=== PATIENT | male | born 1980 | race Caucasian/White ===

== ENCOUNTER 2017-04-04 09:34 | Emergency (ER) | payer OTHER ==
[~2017-04-04] VITALS: Ht 177.8 cm; Wt 98.2 kg
[~2017-04-04 09:34] MED LIST: AMLO-110 PO; ATOR10TA82 PO
[2017-04-04 09:37] VITALS: TEMP 36.7; Ht 177.8 cm; Wt 98.2 kg
[2017-04-04] MEDS ORDERED: SODIUM CHLORIDE 0.9% 1000ML 1,000 ML IV STA (09:54)
--- NOTE | 2017-04-04 09:57 | EMERGENCY ROOM VISIT NOTE ---
History Report prepared by Shantell: Chris Faye Under the Supervision of: Dr. Luis Mack M.D. First contact with patient: 09:45 Chief Complaint: DIZZY Stated Complaint: DIZZINESS,LIGHT HEADED,CHEST TIGHTNESS History of Present Illness The patient is a 37 year old male who presents to the Emergency Room with complaints of constant dizziness beginning two days ago. He describes his dizziness as 'fuzziness' and the room spinning. The patient states he was at [employer] and stood up quickly. He reports it felt like the room was spinning and he was going to fall over. The patient notes he experienced similar symptoms yesterday while he was sitting on the couch and thought he was going to fall over. He states he developed a headache, palpitations, and a heat eller earlier today. The patient reports he felt dizzy when he tried using the restroom in the ED. He notes he is keeping up on his fluids. The patient states he had similar symptoms 1.5 months ago, and it was attributed to his elevated liver enzymes from heavy alcohol use. He reports he stopped drinking alcohol. The patient notes he has been experiencing right calf pain since this episode. He states he has a history of smoking, hypertension, and hyperlipidemia. The patient denies chest pain, trauma to the head, recent sickness, numbness, chills , fevers, weakness, vomiting, history of diabetes, black stools, history of hepatitis C, and abnormal exposures at work. Source of History: patient Onset: two days ago Position: other (global) Quality: other (dizziness) Timing: constant Associated Symptoms: + headache, No fevers, No chills, No chest pain, No vomiting, No weakness, No numbness Note: Associated symptoms: room was spinning, feeling of falling over, palpitation, heat eller, right calf pain Denies: trauma to the head, recent sickness Review of Systems See HPI for pertinent positives & negatives. A total of 10 systems reviewed and were otherwise negative. Past Medical & Surgical Medical Problems: (1) Hyperlipidemia (2) Hypertension Old medical records were reviewed. Nurse's notes were reviewed and I agree with. Family History Heart disease Social History Smoking Status: Current Every Day Smoker Alcohol Use: occasionally Drug Use: none Marital Status: in relationship Housing Status: lives with family Occupation Status: employed Current/Historical Medications Scheduled Amlodipine (Norvasc), 1 TAB PO DAILY Atorvastatin (Lipitor), 1 TAB PO DAILY Scheduled PRN Meclizine Hcl (Meclizine Hcl), 1 TAB PO TID PRN for Dizziness or Vertigo Allergies Coded Allergies: No Known Allergies (Unverified , NONE-, 04/04/17) Physical Exam Vital Signs Date Time Temp Pulse Resp B/P (MAP) Pulse Ox O2 Delivery O2 Flow Rate FiO2 04/04/17 13:18 79 18 142/87 99 Room Air 04/04/17 12:12 85 18 144/91 98 Room Air 04/04/17 09:37 36.7 108 18 157/97 100 Room Air Physical Exam General: Non-ill appearing young male in no acute distress. HEENT: Normal cephalic atraumatic. Pupils are equal round and reactive to light. Extraocular movements are intact. Oropharynx is pink with moist mucous membranes. No swelling of the mouth lips or tongue. Neck: Supple with a midline trachea. No meningeal signs or stiffness, no JVD or bruits. No Stridor. Chest: Clear to auscultation bilaterally. No wheezes or rhonchi. No increased work of breathing. Heart: regular rate and rhythm. Abdomen: Soft nontender, nondistended without rebound guarding or rigidity. Extremities: No cyanosis clubbing or edema. No calf tenderness or assymetry Spine/Back. Non tender to palpation. No CVA tenderness Skin: Good turgor without rashes. Neurologic exam: Cranial nerves two through 12 are intact. Motor and sensation are intact and symmetrical throughout. Normal gait. Normal heel to toe. Normal finger to nose. Negative Romberg. Medical Decision & Procedures ER Provider Diagnostic Interpretation: Radiology results as stated below per my review and radiologist interpretation: CT OF THE HEAD WITHOUT CONTRAST CLINICAL HISTORY: Dizziness. COMPARISON STUDY: Head CT October 01, 2015. CT DOSE: 537.48 mGy.cm TECHNIQUE: Helical axial images of the head were obtained without IV contrast. Automated exposure control was utilized for the study. A dose lowering technique was utilized adhering to the principles of ALARA. FINDINGS: No acute intracranial hemorrhage, midline shift or mass effect is present. Brain volume is normal. Ventricular system is normal. Basilar cisterns are patent. There are no extra-axial collections. Muller-white differentiation is maintained. There are no findings to suggest acute dural sinus thrombosis or acute territorial infarct. Visualized portions of the sinuses and mastoid air cells are clear. There are no calvarial abnormalities. IMPRESSION: No acute intracranial findings. Electronically signed by: Ish Eng M.D. 04/04/2017 11:21 AM Dictated Date/Time: 04/04/2017 11:19 AM CHEST ONE VIEW PORTABLE CLINICAL HISTORY: CHEST PAIN COMPARISON STUDY: Chest radiograph October 01, 2015. FINDINGS: Lung volumes are normal. There is no pneumothorax or pleural effusion. There is no consolidation or evidence of pulmonary edema. Cardiomediastinal silhouette is unremarkable. IMPRESSION: No acute cardiopulmonary findings. Electronically signed by: Ish Eng M.D. 04/04/2017 10:18 AM Dictated Date/Time: 04/04/2017 10:18 AM Laboratory Results 04/04/17 10:25 Red Blood Count 5.44, Mean Corpuscular Volume 88.2, Mean Corpuscular Hemoglobin 31.1, Mean Corpuscular Hemoglobin Concent 35.2, Mean Platelet Volume 9.9, Neutrophils (%) (Auto) 78.6, Lymphocytes (%) (Auto) 12.7, Monocytes (%) (Auto) 5.7, Eosinophils (%) (Auto) 2.6, Basophils (%) (Auto) 0.2, Neutrophils # (Auto) 5.09, Lymphocytes # (Auto) 0.82, Monocytes # (Auto) 0.37, Eosinophils # (Auto) 0.17, Basophils # (Auto) 0.01 04/04/17 10:25 Test 04/04/17 10:25 04/04/17 10:28 White Blood Count 6.47 K/uL (4.8-10.8) Red Blood Count 5.44 M/uL (4.7-6.1) Hemoglobin 16.9 g/dL (14.0-18.0) Hematocrit 48.0 % (42-52) Mean Corpuscular Volume 88.2 fL (80-100) Mean Corpuscular Hemoglobin 31.1 pg (25-34) Mean Corpuscular Hemoglobin Concent 35.2 g/dl (32-36) Platelet Count 231 K/uL (130-400) Mean Platelet Volume 9.9 fL (7.4-10.4) Neutrophils (%) (Auto) 78.6 % Lymphocytes (%) (Auto) 12.7 % Monocytes (%) (Auto) 5.7 % Eosinophils (%) (Auto) 2.6 % Basophils (%) (Auto) 0.2 % Neutrophils # (Auto) 5.09 K/uL (1.4-6.5) Lymphocytes # (Auto) 0.82 K/uL (1.2-3.4) Monocytes # (Auto) 0.37 K/uL (0.11-0.59) Eosinophils # (Auto) 0.17 K/uL (0-0.5) Basophils # (Auto) 0.01 K/uL (0-0.2) RDW Standard Deviation 40.7 fL (36.4-46.3) RDW Coefficient of Variation 12.8 % (11.5-14.5) Immature Granulocyte % (Auto) 0.2 % Immature Granulocyte # (Auto) 0.01 K/uL (0.00-0.02) D-Dimer < 190 ug/L FEU (0-500) Anion Gap 7.0 mmol/L (3-11) Est Creatinine Clear Calc Drug Dose 130.3 ml/min Estimated GFR () 122.8 Estimated GFR (Non- 106.0 BUN/Creatinine Ratio 12.6 (10-20) Calcium Level 9.5 mg/dl (8.5-10.1) Total Bilirubin 0.5 mg/dl (0.2-1) Direct Bilirubin 0.1 mg/dl (0-0.2) Aspartate Amino Transf (AST/SGOT) 33 U/L (15-37) Alanine Aminotransferase (ALT/SGPT) 96 U/L (12-78) Alkaline Phosphatase 79 U/L (45-117) Total Protein 8.0 gm/dl (6.4-8.2) Albumin 4.3 gm/dl (3.4-5.0) Lipase 96 U/L (73-393) Thyroid Stimulating Hormone (TSH) 4.310 uIu/ml (0.300-4.500) Bedside Troponin I < 0.030 ng/ml (0-0.045) Laboratory studies as stated above per my review. Medications Administered Medications (Trade) Dose Ordered Sig/Jaime Route Start Time Stop Time Status Last Admin Dose Admin Sodium Chloride 1,000 ml @ 999 mls/hr Q1H1M STAT IV 04/04/17 09:54 04/04/17 10:54 DC 04/04/17 10:43 999 MLS/HR Ketorolac Tromethamine (Toradol Inj) 30 mg NOW STAT IV 04/04/17 10:29 04/04/17 10:30 DC 04/04/17 10:43 30 MG ECG Indication: other (dizziness) Rate (beats per minute): 89 Rhythm: normal sinus Findings: RBBB (incomplete), no acute ischemic change, no ectopy Comparison ECG Date: no prior available Change: Patient's electrocardiogram was interpreted by me. ED Course 09: Past medical records reviewed. The patient was evaluated in room B09, and a complete history and physical examination were performed. 0954: Ordered Sodium Chloride 1000 ml @ 999 mls/hr IV 1026: I reevaluated the patient. He is now complaining of a headache. Toradol will be ordered. 1029: Ordered Ketorolac Tromethamine 30mg IV 1110: I reevaluated the patient, and he is going to get his CT scan. 1244: Upon reevaluation, the patient is resting comfortably. I discussed the results and treatment plan with him. He verbalized agreement of the treatment plan. The patient was discharged home. Medical Decision Differentials include, but are not limited to; vertigo, arrhythmia, DVT, anemia , electrolyte or metabolic abnormality, infection. This patient comes in as described above he complains of feeling dizzy. He felt dizzy today also had a spell recently. It seems more like a spinning but also more of a lightheadedness at times as well. No chest pain or shortness of breath. He looks well on exam and is a normal neurologic exam. He is able ambulate and has normal finger to nose and normal cerebellar function as well. IV access established EKG was obtained as well as multiple blood testing. He was hydrated with Iv normal saline. He was given Toradol 30mg IV from a mild headache. He has nothing to suggest meningitis or subarachnoid hemorrhage by history or exam. EKG does not suggest acute coronry syndrome or arrhythmia. His cardiac biomarkers are not elevated. No acute electrolyte metabolic abnormalities. CAT scan of his head is unremarkable. Chest x-ray is unremarkable. TSH is within normal limits. He feels better and would like to go home. I will give a prescription for meclizine and he can use if needed for dizziness as it may be more related to vertigo and his ear. I encouraged him follow-up with regular doctor this week for recheck and return to ER over the weekend if symptoms worsen or has any new problems or concerns. Additionally I warned him that meclizine could make him drowsy and do not take before drinking , driving, working. The patient and his were happy with the plan and he was discharged to home. Impression Primary Impression: Dizziness Scribe Attestation The scribe's documentation has been prepared under my direction and personally reviewed by me in its entirety. I confirm that the note above accurately reflects all work, treatment, procedures, and medical decision making performed by me. Departure Information Dispostion Home / Self-Care Prescriptions Meclizine Hcl (MECLIZINE HCL) 25 Mg Tab 1 TAB PO TID Y for Dizziness or Vertigo for 3 Days, #9 TAB Prov: Luis Mack M.D. 04/04/17 Referrals Jazmine Reyes (PCP) Forms HOME CARE DOCUMENTATION FORM, IMPORTANT VISIT INFORMATION Patient Instructions My [facility] Additional Instructions Rest. Drink plenty of fluids. Follow-up with your doctor this week for recheck For dizziness, may try to use meclizine 25 mg every 8 hours if needed only. Meclizine may make you drowsy and be careful after taking. Do not drive or work after taking meclizine Follow-up with your doctor this week for recheck and return to the ER over the weekend if symptoms worsen
--- NOTE | 2017-04-04 10:19 | DIAGNOSTIC IMAGING REPORT ---
CHEST ONE VIEW PORTABLE CLINICAL HISTORY: CHEST PAIN COMPARISON STUDY: Chest radiograph October 01, 2015. FINDINGS: Lung volumes are normal. There is no pneumothorax or pleural effusion. There is no consolidation or evidence of pulmonary edema. Cardiomediastinal silhouette is unremarkable. IMPRESSION: No acute cardiopulmonary findings. Electronically signed by: Ish Eng M.D. 04/04/2017 10:18 AM Dictated Date/Time: 04/04/2017 10:18 AM
[2017-04-04] MEDS ORDERED: KETOROLAC TROMETHAMINE 30 MG/ML VIAL IV STA (10:29)
[2017-04-04 10:38] LABS: BASO % 0.2 %; BASO ABS # 0.01 K/uL (0-0.2); EOS % 2.6 %; EOS ABS # 0.17 K/uL (0-0.5); HEMOGLOBIN 16.9 g/dL (14.0-18.0); IG# 0.01 K/uL (0.00-0.02); LYMPH % 12.7 %; LYMPH ABS # 0.82 K/uL (1.2-3.4); MEAN CELL VOLUME 88.2 fL (80-100); MEAN CORPUSCULAR HEMOGLOBIN 31.1 pg (25-34); MEAN CORPUSCULAR HGB CONC 35.2 g/dl (32-36); MEAN PLATELET VOLUME 9.9 fL (7.4-10.4); MONO % 5.7 %; MONO ABS # 0.37 K/uL (0.11-0.59); NEUT % 78.6 %; NEUT ABS # 5.09 K/uL (1.4-6.5); PLATELET COUNT 231 K/uL (130-400); RED CELL DISTRIBUTION WIDTH CV 12.8 % (11.5-14.5); RED CELL DISTRIBUTION WIDTH SD 40.7 fL (36.4-46.3); WHITE BLOOD COUNT 6.47 K/uL (4.8-10.8)
[2017-04-04 10:55] LABS: ALBUMIN 4.3 gm/dl (3.4-5.0); CALCIUM 9.5 mg/dl (8.5-10.1); CREATININE 0.93 mg/dl (0.60-1.40); POTASSIUM 3.8 mmol/L (3.5-5.1)
--- NOTE | 2017-04-04 11:23 | DIAGNOSTIC IMAGING REPORT ---
CT OF THE HEAD WITHOUT CONTRAST CLINICAL HISTORY: Dizziness. COMPARISON STUDY: Head CT October 01, 2015. CT DOSE: 537.48 mGy.cm TECHNIQUE: Helical axial images of the head were obtained without IV contrast. Automated exposure control was utilized for the study. A dose lowering technique was utilized adhering to the principles of ALARA. FINDINGS: No acute intracranial hemorrhage, midline shift or mass effect is present. Brain volume is normal. Ventricular system is normal. Basilar cisterns are patent. There are no extra-axial collections. Muller-white differentiation is maintained. There are no findings to suggest acute dural sinus thrombosis or acute territorial infarct. Visualized portions of the sinuses and mastoid air cells are clear. There are no calvarial abnormalities. IMPRESSION: No acute intracranial findings. Electronically signed by: Ish Eng M.D. 04/04/2017 11:21 AM Dictated Date/Time: 04/04/2017 11:19 AM
[2017-04-04] MEDS ORDERED: MECL1TAB42 PO (12:49)
[2017-04-04 13:18] VITALS: BP 142/87; PULSE 79; O2SAT 99
== END 2017-04-04 13:23 | disposition home or self-care (01) ==
LOC: C.EDB 09:35
DX: R42 Dizziness and giddiness (principal); E78.5 Hyperlipidemia, unspecified; I10 Essential (primary) hypertension; F17.210 Nicotine dependence, cigarettes, uncomplicated; Z79.899 Other long term (current) drug therapy

== ENCOUNTER 2017-04-08 07:38 | Emergency (ER) | payer OTHER ==
[~2017-04-08] VITALS: Ht 177.8 cm; Wt 97.5 kg
[~2017-04-08 07:38] MED LIST changes: +MECL1TAB42 PO
[2017-04-08 07:44] VITALS: TEMP 36.8; Ht 177.8 cm; Wt 97.5 kg
[2017-04-08] MEDS ORDERED: ONDANSETRON INJ 2 MG/ML 2 ML VIAL IV STA (08:06)
[2017-04-08] MEDS ORDERED: ASPIRIN 81 MG CHEW PO STA (08:06)
[2017-04-08] MEDS ORDERED: SODIUM CHLORIDE 0.9% 1000ML 1,000 ML IV STA (08:06)
[2017-04-08] MEDS ORDERED: NITROGLYCERIN 0.4 MG SL PER TAB CHARGE SL PRN (08:15)
--- NOTE | 2017-04-08 08:24 | DIAGNOSTIC IMAGING REPORT ---
CHEST ONE VIEW PORTABLE CLINICAL HISTORY: 37 years-old Male presenting with CHEST PAIN. TECHNIQUE: Portable upright AP view of the chest was obtained. COMPARISON: 04/04/2017. FINDINGS: Cardiomediastinal silhouette normal. Mildly low lung volumes with hypoventilatory changes. No focal opacity. No large effusion or pneumothorax. Osseous structures normal. Upper abdomen normal. IMPRESSION: 1. Mildly low lung volumes with hypoventilatory changes. Otherwise no acute cardiopulmonary disease. Electronically signed by: Aly Durham M.D. 04/08/2017 8:23 AM Dictated Date/Time: 04/08/2017 8:22 AM
[2017-04-08 08:32] LABS: BASO % 0.4 %; BASO ABS # 0.02 K/uL (0-0.2); EOS % 3.7 %; HEMATOCRIT 47.9 % (42-52); HEMOGLOBIN 16.8 g/dL (14.0-18.0); IG# 0.01 K/uL (0.00-0.02); LYMPH % 27.3 %; LYMPH ABS # 1.49 K/uL (1.2-3.4); MEAN CORPUSCULAR HEMOGLOBIN 31.2 pg (25-34); MEAN CORPUSCULAR HGB CONC 35.1 g/dl (32-36); MONO % 7.7 %; MONO ABS # 0.42 K/uL (0.11-0.59); NEUT % 60.7 %; NEUT ABS # 3.32 K/uL (1.4-6.5); PLATELET COUNT 222 K/uL (130-400); RED CELL DISTRIBUTION WIDTH CV 13.1 % (11.5-14.5); RED CELL DISTRIBUTION WIDTH SD 42.1 fL (36.4-46.3); WHITE BLOOD COUNT 5.46 K/uL (4.8-10.8)
[2017-04-08 08:40] LABS: ALBUMIN 4.6 gm/dl (3.4-5.0); CREATININE 1.02 mg/dl (0.60-1.40); POTASSIUM 3.6 mmol/L (3.5-5.1)
[2017-04-08 08:43] LABS: TOTAL PROTEIN 8.5 gm/dl (6.4-8.2)
[2017-04-08] MEDS ORDERED: HYDR50CA2 PO (09:39)
[2017-04-08 09:41] VITALS: BP 127/86; PULSE 85; O2SAT 96
--- NOTE | 2017-04-08 10:27 | EMERGENCY ROOM VISIT NOTE ---
ED Visit Note First contact with patient: 07:51 Chief Complaint: Chest tightness. History of Present Illness: Mr. Dubose is a 37 year-old white male who ambulates into the ED complaining of midsternal chest tightness. Historically patient reports hypertension, dyslipidemia and the use of tobacco. He was seen in this emergency department 4 days ago for dizziness which resulted in a normal neurological and cardiac workup and he was discharged to home on mescaline. He reports since being home he has had multiple episodes of dizziness but reports he only used the meclizine once and had multiple side effects; chills, sweats, "feeling like crap", from the medication so has not used. Patient reports last night he had a 10 minute episode of chest pain which self resolved and he reports he was able to sleep all night. This morning at approximately 7 AM he reports he was feeding his horses and developed a lightheadedness sensation and chest tightness. Since that time the chest tightness has been constant. He places his discomfort in the midsternal area. He rates his discomfort 6/10. The pain is nonradiating. He has not identified any aggravating or alleviating factors related to this discomfort. Associated with this discomfort he reports intermittently he feels confused; he reports she forgot how to feed his horses, he is experiencing lightheadedness, he has been nauseated but has not vomited and he reports on the way over while driving both hands became numb. Patient denies fevers, chills, sweats, skin eruptions, skin color changes, upper respiratory tract symptoms, wheezing, cough shortness of breath, orthopnea , dependent edema, previous clots, claudication, cramping, recent surgery/ inactivity/extended travel, abdominal pain, diarrhea, constipation, rectal bleeding, black/tarry stools, urinary symptoms, back/flank pain. Review of Systems: As noted above in history of present illness. All body systems were reviewed and found to be negative as noted above. Past Medical History: As previously noted. Current Medications: Norvasc, Lipitor. Allergies to Medications: Patient denies. Social History: Patient is currently employed; he feels safe in his home environment; recent stop drinking, Hammer 2 months ago, stopped smoking 2 days ago but still continues to chew tobacco. Physical Examination: Vital Signs: Date Time Temp Pulse Resp B/P (MAP) Pulse Ox O2 Delivery O2 Flow Rate FiO2 04/08/17 09:41 85 16 127/86 96 Room Air 04/08/17 08:56 77 16 120/75 95 Room Air 04/08/17 08:19 94 18 129/85 95 Room Air 04/08/17 07:53 95 04/08/17 07:44 36.8 104 18 168/93 100 Room Air GENERAL: 37-year-old male in mild to moderate distress due to pain, nontoxic- appearing, afebrile and hemodynamically stable. Patient is anxious. NEUROLOGICAL: Awake, alert and oriented to person, place and time. Answering questions appropriately and following commands. Normal gait. Good hand eye coordination. SKIN: Warm, dry and pink. No soft tissue eruptions or trauma noted. HEENT: Atraumatic and normocephalic. PERRLA. Sclera white and conjunctiva pink. Oral cavity moist and pink. Pharynx is nonerythematous or edematous. Speech normal. No lymphadenopathy. Trachea midline. No jugular venous distention. No carotid bruits. BACK: No tenderness over the bony spine. No CVA tenderness. THORAX: Lungs sounds are clear to auscultation and equal bilaterally with symmetrical chest wall. No wheezing, rales or rhonchi. No crepitus, tenderness , subcutaneous air or deformities noted. HEART: Regular rate and rhythm. No gallops, rubs or murmurs are appreciated. No lifts, heaves or thrills. PMI is not displaced. ABDOMEN: Flat, soft and nontender. Positive bowel sounds in all quadrants. No guarding, rigidity or organomegaly. EXTREMITIES: Moves all extremities well on command and with purpose. All distal neurovascular statuses are intact and equal bilaterally. No dependent edema or calf tenderness/cords. ED Course: Patient is assessed as noted above. Laboratory Testing: Test 04/08/17 07:50 04/08/17 08:12 Range/Units White Blood Count 5.46 4.8-10.8 K/uL Red Blood Count 5.38 4.7-6.1 M/uL Hemoglobin 16.8 14.0-18.0 g/dL Hematocrit 47.9 42-52 % Mean Corpuscular Volume 89.0 80-100 fL Mean Corpuscular Hemoglobin 31.2 25-34 pg Mean Corpuscular Hemoglobin Concent 35.1 32-36 g/dl Platelet Count 222 130-400 K/uL Mean Platelet Volume 10.0 7.4-10.4 fL Neutrophils (%) (Auto) 60.7 % Lymphocytes (%) (Auto) 27.3 % Monocytes (%) (Auto) 7.7 % Eosinophils (%) (Auto) 3.7 % Basophils (%) (Auto) 0.4 % Neutrophils # (Auto) 3.32 1.4-6.5 K/uL Lymphocytes # (Auto) 1.49 1.2-3.4 K/uL Monocytes # (Auto) 0.42 0.11-0.59 K/uL Eosinophils # (Auto) 0.20 0-0.5 K/uL Basophils # (Auto) 0.02 0-0.2 K/uL RDW Standard Deviation 42.1 36.4-46.3 fL RDW Coefficient of Variation 13.1 11.5-14.5 % Immature Granulocyte % (Auto) 0.2 % Immature Granulocyte # (Auto) 0.01 0.00-0.02 K/uL Sodium Level 133 136-145 mmol/L Potassium Level 3.6 3.5-5.1 mmol/L Chloride Level 100 98-107 mmol/L Carbon Dioxide Level 22 21-32 mmol/L Anion Gap 10.0 3-11 mmol/L Blood Urea Nitrogen 11 7-18 mg/dl Creatinine 1.02 0.60-1.40 mg/dl Est Creatinine Clear Calc Drug Dose 118.4 ml/min Estimated GFR () 109.9 Estimated GFR (Non- 94.8 BUN/Creatinine Ratio 10.5 10-20 Random Glucose 111 70-99 mg/dl Calcium Level 10.0 8.5-10.1 mg/dl Total Bilirubin 1.3 0.2-1 mg/dl Direct Bilirubin 0.2 0-0.2 mg/dl Aspartate Amino Transf (AST/SGOT) 37 15-37 U/L Alanine Aminotransferase (ALT/SGPT) 94 12-78 U/L Alkaline Phosphatase 90 45-117 U/L Total Protein 8.5 6.4-8.2 gm/dl Albumin 4.6 3.4-5.0 gm/dl Lipase 79 73-393 U/L Bedside Troponin I < 0.030 0-0.045 ng/ml Chest X-Rays: Were read by myself and the radiologist showing no acute infiltrates, effusions or pneumothorax. Normal heart silhouette and bony anatomy. This was compared to previous and no acute changes were noted. EKG: Read by myself and reviewed with Dr. Lockett; shows normal sinus rhythm with a ventricular rate of 96 bpm. Incomplete right Brandel branch block and poor R- wave progression; this was reviewed with his previous from April 08 in no acute changes was noted. Patient was hydrated with normal saline and was given one sublingual nitroglycerin tablet 0.4 mg and 4 mg of Zofran. During his stay in the emergency department patient was reassessed by multiple providers. Prior to getting the nitroglycerin tablet patient reports to the nurse that he was pain-free and never really was experiencing any pain. Additionally he was seen by Dr. Lockett and he reported that he was not experiencing any pain. He expresses concerns about his blood pressure to multiple providers and feels this is could be related to his blood pressure. Patient's HEART Score was evaluated and was at low risk. Patient's case was reviewed with Dr. Lockett; he independently assessed the patient and we agreed on diagnostic approach, treatment, disposition and plan. Dr. Lockett recommended a prescription for Vistaril for his symptoms. Patient's case was reviewed with case management; I did request that they assist the patient and setting up a follow-up appointment with cardiology. Patient was educated about today's findings and instructed on his treatment plan ; he verbalized understanding and agreement with this plan. Clinical Impression: Chest tightness. Lightheadedness. Hypertension. Decision-Making: Initially my differential diagnosis I considered acute coronary syndrome, thoracic aneurysm, pneumothorax, pneumonia, sinusitis, tachyarrhythmias, bradycardia arrhythmias, anxiety and other causes. Disposition: Patient discharged home in stable condition; prior to departure he was reassessed and subjectively reported that he was no longer experienced chest discomfort. He did report he was still having sensations of lightheadedness. Plan: Patient was encouraged to continue his antihypertensive medications and monitor his blood pressure at home keeping a record. Patient was prescribed Vistaril 50 mg every 6 hours as needed for lightheadedness or chest discomfort. Patient was encouraged to follow-up with his PCP for recheck of his blood pressure and updating his blood pressure medications. Patient was informed that the case management department of the ED would be contacting cardiology for possible follow-up and appointment. Patient was encouraged return ED for return of chest pain, worsening lightheadedness, fevers, vomiting, passing out or any new/concerning symptoms.
== END 2017-04-08 10:02 | disposition home or self-care (01) ==
LOC: C.EDB 07:40 → C.EDA 10:02
DX: R07.9 Chest pain, unspecified (principal); I10 Essential (primary) hypertension; R42 Dizziness and giddiness; E78.5 Hyperlipidemia, unspecified; F17.200 Nicotine dependence, unspecified, uncomplicated